=== PATIENT | female | born 1990 | race Two or more races ===

== ENCOUNTER 2017-03-13 18:52 | Inpatient (IN) | payer OTHER ==
[2017-03-13] MEDS ORDERED: D5W-LR W/ 20 UNITS OXYTOCIN 1,000 ML IV ONE ×2 (19:42→21:29)
[2017-03-13] MEDS ORDERED: BENZOCAINE 28 GM HEMORRHOIDAL OINTMENT TP PRN (20:02)
[2017-03-13] MEDS ORDERED: BISACODYL 10 MG SUPP.RECT RC PRN (20:02)
[2017-03-13] MEDS ORDERED: BENZOCAINE 20% 57 GM BOTTLE TP PRN (20:02)
[2017-03-13] MEDS ORDERED: IBUPROFEN 600 MG TABLET (FP) PO PRN (20:02)
[2017-03-13] MEDS ORDERED: oxyCODONE HCL 5 MG TABLET PO PRN (20:02)
[2017-03-13] MEDS ORDERED: WITCH HAZEL 50% (TUCKS) 40 PAD/JAR PAD TP PRN (20:02)
[2017-03-13] MEDS ORDERED: METHYLERGONOVINE MALEATE 0.2 MG/1 ML AMP IM PRN (20:02)
[2017-03-13] MEDS ORDERED: ACETAMINOPHEN 325 MG TABLET (FP) PO PRN (20:02)
[2017-03-13 20:07] VITALS: BMI 29.2
--- NOTE | 2017-03-13 20:17 | HP ---
Past Medical History - Primary Care Physician PCP:: Carolann Augustin - Admission Chief Complaint: 26 yrs edc 03/16/17 s/p delivery in ambulence , conducted by EMT .baby Girl born at 6.24 pm 03/13/17, , 9/9.Wt 6'9' ht 19" . patient brought with pllacenta in utero , expelled spontaneously at 7.05 pm in L&D . EBL 350 as per nurse witness. History of Present Illness: care at [facility]. pt states she had pain since last night . She went to [facility] at 10.00am , she was 2 cm dilated, uc q 15 min , she was sent home . Lp became intense since 3.00Pm, DROM at 5.00Pm , [facility] she had urge to push, delivery was conducted in ambulence on the street by EMT , she was brought to [facility]. WT gain 45 lbs work up AB pos , gc/ct/bv neg , AFP neg, urine drug tox neg, , 1 hr gtt99, HIV neg, Rpr nr,, GBS neg,,Hbsag neg , Rpr nr, Pap Ascus , HPV neg, Quantiferon neg TDAP VACCINE 12/25/16 given sono noted History Source: Patient, Medical Record - Past Medical History ANESTHESIA ATTENDING: No: Migraine, Seizure Cardiovascular: No: HTN, Murmur Pulmonary: No: Asthma Gastrointestinal: No: Gastritis Renal/: No: UTI Reproductive: Yes: Other (pap ASCUS, HPV neg) ...: 3 ...Para: 1 ...Term: 1 (07/24/2013 7''1/2 " ) ...Induced : 1 ...LMP: 06/09/16 ... Weeks Gestation by Dates: 39.4 ...EDC by Dates: 03/16/17 ...EDC by Sono: 03/16/17 Heme/Onc: No: Anemia Infectious Disease: No: HIV, STD's Endocrine: No: Diabetes Mellitus, Hyperthyroidism, Hypothyroidism - Past Surgical History Past Surgical History: Yes: None Hx Myomectomy: No Hx Transabdominal Cerclage: No - Smoking History Smoking history: Never smoked - Alcohol/Substance Use Hx Alcohol Use: No History of Substance Use: reports: None - Social History History of Recent Travel: No Home Medications - Allergies Allergies/Adverse Reactions: Allergies Allergy/AdvReac Type Severity Reaction Status Date / Time No Known Allergies Allergy Verified 03/13/17 19:38 - Home Medications Home Medications: Ambulatory Orders Vit/Iron Fumarate/FA [ Tablet] 1 tab PO DAILY 03/13/17 Physical Exam - Maternity Vital Signs: Selected Entries 03/13/17 03/13/17 18:52 19:30 Temperature 98.2 F Pulse Rate 99 H 96 H Blood Pressure 119/74 127/69 Blood Pressure 88 Mean Weight 170 lb Constitutional: Yes: Well Nourished Eyes: Yes: WNL HENT: Yes: Normocephalic - Abdominal Exam/OB Fundal Height: 18 (s/p delivery of fetus & placenta , firm uterus , blood clots removed , MEU was done ) - Vaginal Exam/OB Vaginal Bleediing: Moderate (h/o EBL 350 ml. perineum & vagina intact) Speculum Exam: No (bilateral inner labia 1st degree tear , sutured with vicry #3 /0 under L/A ) - Physical Exam Extremities: No: Calf Tenderness Edema: Yes Edema: LLE: Trace, RLE: Trace Integumentary: Yes: WNL, Tattoos Deep Tendon Reflex Grade: Normal +2 ...Motor Strength: WNL Psychiatric: Yes: WNL, Alert, Oriented - Labs Lab Results: Laboratory Tests 03/13/17 03/13/17 03/13/17 19:20 19:20 19:20 WBC 17.3 H Hgb 11.8 Plt Count 179 Neutrophils % 93.6 H Lymphocytes % 3.8 L INR 0.90 Sodium 139 Potassium 3.9 Chloride 104 Carbon Dioxide 20 L BUN 12 Creatinine 0.7 Random Glucose 101 Calcium 8.4 L Urine Protein Urine Ketones 03/13/17 19:20 WBC Hgb Plt Count Neutrophils % Lymphocytes % INR Sodium Potassium Chloride Carbon Dioxide BUN Creatinine Random Glucose Calcium Urine Protein 1+ H Urine Ketones 1+ H Assessment/Plan 26 yrs s/p delivery in ambulence , placenta delivery spontaneous in the hosp Intact ut , cervix & vagina inner labial tear sutured in L&D plan PP care
[2017-03-13 20:46] LABS: BASOPHIL 0.1 % (0-2.0); MCH 27.9 pg (25.7-33.7); MCHC 31.3 g/dl (32.0-36.0); MEAN PLT VOLUME 11.3 fl (7.5-11.1); NEUTROPHILS 93.6 % (42.8-82.8); PLATELET COUNT 179 K/MM3 (134-434); RDW 14.5 % (11.6-15.6); WHITE BLOOD COUNT 17.3 K/mm3 (4.0-10.0)
--- NOTE | 2017-03-13 20:46 | PN ---
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
[2017-03-13 20:58] LABS: INR 0.9 (0.82-1.09); PROTHROMBIN TIME (PATIENT) 9.9 SEC (9.98-11.88)
[2017-03-13 21:04] LABS: URINE APPEARANCE CLEAR; URINE BILIRUBIN NEGATIVE (NEGATIVE); URINE BLOOD NEGATIVE (NEGATIVE); URINE COLOR YELLOW; URINE GLUCOSE (UA) NEGATIVE (NEGATIVE); URINE KETONE 1+ (NEGATIVE); URINE LEUK ESTERASE NEGATIVE (NEGATIVE); URINE NITRITE NEGATIVE (NEGATIVE); URINE UROBILINOGEN NEGATIVE E.U./dl (0.2-1.0)
[2017-03-13 21:15] LABS: CALCIUM 8.4 mg/dL (8.5-10.1); COCKROFT - GAULT 148.2485; CREATININE 0.7 mg/dL (0.55-1.02)
[2017-03-13 21:19] LABS: URINE PROTEIN 1+ (NEGATIVE)
[2017-03-13 21:20] LABS: URINE MUCUS MODERATE; URINE RBC 8 /hpf (0-3); URINE WBC 3 /hpf (3-5)
[2017-03-14] MEDS: FERROUS SO4 325 MG TABLET (FP) PO SCH ×2 (08:44→17:21)
[2017-03-14 08:49] LABS: BASOPHIL 0.1 % (0-2.0); EOSINOPHIL 0.1 % (0-4.5); MCH 28.5 pg (25.7-33.7); MEAN CELL VOLUME 88.9 fl (80-96); MEAN PLT VOLUME 10.3 fl (7.5-11.1); PLATELET COUNT 147 K/MM3 (134-434); RDW 14.5 % (11.6-15.6); WHITE BLOOD COUNT 17.7 K/mm3 (4.0-10.0)
--- NOTE | 2017-03-14 09:22 | PN ---
Post Progress Note - Subjective Subjective: no complains Post Day: 1 Type of Delivery: Vital Signs: Vital Signs Temperature 98.1 F 03/14/17 06:07 Pulse Rate 80 03/14/17 06:07 Respiratory Rate 20 03/14/17 06:07 Blood Pressure 100/60 03/14/17 06:07 O2 Sat by Pulse Oximetry (%) Breast Exam: Yes: Soft, Other (BF ). No: Engorged Uterus: Yes: Fundus Firm, Fundus below umbilicus, Non-tender Lochia: Yes: Rubra Lochia, amount: Moderate Extremities: Yes: Calves non-tender Perineum: Yes: Intact Activity: Ambulating - Labs Labs: CBC WBC 17.7 K/mm3 (4.0-10.0) H 03/14/17 08:30 RBC 3.38 M/mm3 (3.60-5.2) L D 03/14/17 08:30 Hgb 9.6 GM/dL (10.7-15.3) L D 03/14/17 08:30 Hct 30.0 % (32.4-45.2) L D 03/14/17 08:30 MCV 88.9 fl (80-96) 03/14/17 08:30 MCHC 32.0 g/dl (32.0-36.0) 03/14/17 08:30 RDW 14.5 % (11.6-15.6) 03/14/17 08:30 Plt Count 147 K/MM3 (134-434) 03/14/17 08:30 MPV 10.3 fl (7.5-11.1) 03/14/17 08:30 Neutrophils % 84.0 % (42.8-82.8) H 03/14/17 08:30 Lymphocytes % 9.0 % (8-40) D 03/14/17 08:30 Monocytes % 6.8 % (3.8-10.2) D 03/14/17 08:30 Eosinophils % 0.1 % (0-4.5) D 03/14/17 08:30 Basophils % 0.1 % (0-2.0) 03/14/17 08:30 Assessment/Plan stable . anemia Plan : discharge tomorrow.
[2017-03-14] MEDS: PRENATAL VITAMINS W/ FOLIC ACID TABLET (FP) PO SCH (09:46)
[2017-03-14] MEDS ORDERED: SENNOSIDES/DOCUSATE COMBO (SENNA PLUS) TABLET (UD) PO PRN (22:00)
[2017-03-14 22:27] VITALS: TEMP 98.3
[2017-03-15 08:11] LABS: BASOPHIL 0.4 % (0-2.0); EOSINOPHIL 0.9 % (0-4.5); MCH 28.7 pg (25.7-33.7); MCHC 32.2 g/dl (32.0-36.0); MEAN PLT VOLUME 10.3 fl (7.5-11.1); NEUTROPHILS 73.1 % (42.8-82.8); PLATELET COUNT 134 K/MM3 (134-434); RDW 14.7 % (11.6-15.6); WHITE BLOOD COUNT 12.3 K/mm3 (4.0-10.0)
--- NOTE | 2017-03-15 08:40 | DS ---
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 Vital Signs: Vital Signs Temperature 98.3 F 03/14/17 22:00 Pulse Rate 88 03/14/17 22:00 Respiratory Rate 20 03/14/17 22:00 Blood Pressure 128/66 03/14/17 22:00 O2 Sat by Pulse Oximetry (%) Constitutional: Yes: Well Nourished, No Distress, Pallor, Other (asymptomatic) Eyes: Yes: WNL HENT: Yes: WNL Neck: Yes: WNL Cardiovascular: Yes: WNL, Regular Rate and Rhythm Respiratory: Yes: WNL, Regular Gastrointestinal: Yes: WNL ...Rectal Exam: Yes: WNL Renal/: Yes: WNL ....Post : Yes: Uterus firm, Uterus non-tender, Moderate lochia rubra ( perineum intact , labial laceration healing) Breast(s): Yes: WNL (BF) Musculoskeletal: Yes: WNL Extremities: Yes: WNL. No: Calf Tenderness Edema: Yes Edema: LLE: Trace, RLE: Trace Integumentary: Yes: Tattoos Neurological: Yes: WNL ...Motor Strength: WNL Psychiatric: Yes: WNL, Alert, Oriented Labs: CBC, BMP 03/15/17 06:00 03/13/17 19:20 Delivery - Delivery Vaginal Delivery: No Problems, Spontaneous (ambulence delivery of infant) Type of Anesthesia: Local, None Episiotomy/Laceration: 1st degree EBL (cc): 350 Delivery, Single - Stages of Labor Date 1st Stage Initiatied: 03/13/17 Time 1st Stage Initiated: 15:00 Date 2nd Stage Initiated: 03/13/17 Time 2nd Stage Initiated: 17:00 Date of Delivery: 03/13/17 Time of Delivery: 18:24 Time Placenta Delivered: 19:05 Placenta: Yes: Spontaneous, Uterine Exploration - 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 , affiliated with [facility] . course uneventful. Discharge today 03/15/17 Discharge Summary Reason For Visit: HOME DELIVERY Current Active Problems Anemia (Acute) Labial abrasion, delivered, current hospitalization (Acute) Normal spontaneous vaginal delivery (Acute) Condition: Stable - Instructions Diet, Activity, Other Instructions: Post Instructions DIET: Continue good diet high in protein, calcium, and iron rich foods. Drink at least eight (8) glasses of water daily in addition to other fluids. ct Regular diet MEDICATIONS: Continue vitamins and iron as previously directed. Motrin and Tylenol may be taken for minor discomfort. ACTIVITY: Mild to moderate exercise may be started in two (2) weeks. Take frequent rest periods. Resume normal activity after six (6) week check up. WOUND CARE OF OPERATIVE SITE: Continue use of perineal bottle until vaginal discharge stops. Keep area clean. Shower daily. Keep abdominal wound dry. Report any drainage or redness to physician. Tub baths, tampons and douches are not permitted for [address] Breast feeding & or Bottle feeding BREAST CARE: (For those that are not breast feeding): If engorgement occurs: Wear tight fitting bra. Take Tylenol or Motrin for pain. Apply cold packs (ice in bags to each breast ) FAMILY PLANNING: There are many control alternatives to pursue and they should be discussed at your first office visit. You may resume sexual activity after your six (6) week check up. (Remember, breast feeding is not a contraceptive) NEXT PHYSICIAN APPOINTMENT: Be certain to call for a six (6) week appointment, unless otherwise directed. . call your clinic for appointment Call Clinic or got to Emergency Dept if you have any of the following: Heavy vaginal bleeding Painful urination Leg pain Unusual odor noted to vaginal bleeding High fever Red streaking noted on breast Referrals: Carolann Augustin MD [Staff Physician] - Disposition: HOME - Home Medications Comprehensive Discharge Medication List: Ambulatory Orders Vit/Iron Fumarate/FA [ Tablet] 1 tab PO DAILY 03/13/17 Acetaminophen [Tylenol .Regular Strength -] 650 mg PO Q3H PRN #0 tablet Ferrous Sulfate [Feosol] 325 mg PO BIDWM tab 03/14/17 Ibuprofen [Motrin -] 200 mg PO Q4H PRN #0 tablet 03/14/17 Vitamins (Sjr) - 1 tab PO DAILY tablet 03/14/17
[2017-03-15] MEDS: FERROUS SO4 325 MG TABLET (FP) PO SCH (10:16)
[2017-03-15] MEDS: PRENATAL VITAMINS W/ FOLIC ACID TABLET (FP) PO SCH (10:17)
[2017-03-15 11:52] VITALS: BP 136/66; PULSE 90
== END 2017-03-15 11:00 | disposition home or self-care (01) | DRG 560 ==
LOC: JLDR 18:52 → J3W 21:45
PROVIDERS: ADMIT Obstetrics & Gynecology; ATTEND Obstetrics & Gynecology
PROC: 0UQMXZZ Repair Vulva, External Approach (ICD-10-PCS; principal; 2017-03-13)
DX: Z39.0 Encounter for care and examination of mother immediately after delivery (principal); O99.02 Anemia complicating childbirth; D64.9 Anemia, unspecified; Z3A.39 39 weeks gestation of pregnancy; Z37.0 Single live birth
CPT/HCPCS: 36415; 59409; 80048; 81003; 81015; 85025; 85610; 86593; 86762; 86850; 86900; 86901